=== PATIENT | female | born 1960 | race Hispanic/Latino ===

== ENCOUNTER 2020-10-16 08:30 | Day surgery (SDC) | payer OTHER ==
[2020-10-16 08:50] LABS: Absolute Lymphocytes (CBC) 2.4 K/uL (0.7-4.9); Basophils % 0.7 % (0-1.3); Hematocrit 37.2 % (36.0-45.0); Lymphocytes % 36.7 % (15.3-44.8); MPV 7.5 fL (7.6-11.3); RBC Red Blood Cell Count 4.24 M/uL (3.86-4.86)
[2020-10-16 09:09] LABS: Potassium 3.8 mmol/L (3.5-5.1)
--- NOTE | 2020-10-16 09:15 | RAD REPORT ---
EXAM DESCRIPTION: RAD - Chest Pa And Lat (2 Views) - 10/16/2020 8:55 am CLINICAL HISTORY: STAT, SAME DAY SURGERY, BED 4 COMPARISON: None available at the time of the study TECHNIQUE: Frontal and lateral views of the chest were obtained. FINDINGS: The lungs are clear. Heart size is normal and central vasculature is within normal limit s. No pleural effusion or pneumothorax seen. No acute bony finding noted. No aortic abnormality. IMPRESSION: No acute cardiopulmonary process.
[2020-10-16] MEDS ORDERED: Ringers Lactate 1,000 ML IV ONE (10:27)
[2020-10-16] MEDS ORDERED: CEFAZOLIN/SWI 1gm 0 GM/0 ML SYR ONE (11:25)
[2020-10-16] MEDS ORDERED: FENTANYL CITR 100 MCG/2 ML ONE (11:50)
[2020-10-16] MEDS ORDERED: KETOROLAC 30 MG/ML INJ ONE (11:50)
[2020-10-16] MEDS ORDERED: MIDAZOLAM HCL 2 MG/2 ML INJ ONE (11:50)
[2020-10-16] MEDS ORDERED: propofoL 200 MG/20 ML VIAL IV ONE (11:50)
[2020-10-16] MEDS ORDERED: ONDANSETRON 4 MG/2 ML VIAL ONE (11:50)
[2020-10-16] MEDS ORDERED: dexAMETHasone 10 MG/ML VIAL ONE (11:50)
[2020-10-16] MEDS ORDERED: ROCURONIUM 50 MG/5 ML VIAL IV ONE (11:50)
[2020-10-16] MEDS ORDERED: LIDOCAINE 1% MPF 5 ML VIAL ONE (11:50)
[2020-10-16] MEDS: CIPROFLOXACIN 400mg IV 400 MG/200 ML BAG IV ONE ×2 (12:28→13:10)
--- NOTE | 2020-10-16 13:43 | P.BOP ---
Preoperative diagnosis: infected abd wall subQ mass with abscess Postoperative diagnosis: same Primary procedure: Excisional biopsy of infected abd wall subQ mass with abscess drain 5x5 cm Estimated blood loss: <10cc Specimen: mass , cult Findings: as above Anesthesia: General Complications: None Transferred to: Recovery Room Condition: Good
[2020-10-16] MEDS ORDERED: CODEINE 30MG/APAP 300MG TAB ONE (14:42)
[2020-10-16 15:15] VITALS: BP 118/61; TEMP 97.5; O2SAT 98
--- NOTE | 2020-11-04 19:55 | OP ---
Date of Procedure: 10/16/2020 Surgeon: Héctor Higuera MD Preoperative Diagnosis: Infected abdominal wall subcutaneous mass with abscess. Postoperative Diagnosis: Infected abdominal wall subcutaneous mass with abscess. Procedure: Excisional biopsy of infected abdominal wall subcutaneous mass with abscess drainage, 5 x 5 cm. Estimated Blood Loss: Less than 10 cc. Specimen: Mass and culture. Anesthesia: General plus local. Indication: This is the case of a female who comes to us with abdominal wall tender mass with erythe ma, tenderness, consistent with an abscess. Benefits, alternatives, and risks of excision of the mass and drainage of an abscess were fully explained, which include, but not limited to infec tion, bleeding, damage to adjacent structures, anesthesia complication, recurrence, MT, and even deat h. She also understands this may not relieve symptoms. She might need more than one surgical interv ention and she will require wound care. She signed a consent. Procedure In Detail: The area of concern was marked by me and the patient in the holding room. The patient was brought to the operating room, placed in supine position. Anesthesia was done without co mplication. Abdominal area was prepped and draped in usual sterile fashion. Local anesthesia was ap plied followed by sharp incision of the skin. Incision was carried down to subcutaneous tissue. At that moment, we noticed the mass. It was carefully removed and deep to that mass, there was an absce ss with purulent discharge. It was also drained with loculations removed and explored. Mass was exc ised. Hemostasis was obtained. Culture was done and then after that we proceeded to pack the area w ith wet-to-dry dressing. The patient tolerated the procedure well. The patient was sent to Recovery in stable condition. Discharge Summary: Diagnosis: Infected abdominal wall subcutaneous mass with abscess. Date Of Procedure: 10/16/2020 Procedure: Excisional biopsy of infected abdominal wall subcutaneous mass with abscess drainage. Disposition: Home. Activity: As tolerated. No heavy lifting. Plan: Follow up in my office in 1 week. Call for appointment at [phone]. Wet-to-dry dressing juan daniel giraldo Medications: See orders. MADAY/MODL Voice ID: [id number] Report ID: [id number]
== END 2020-10-16 15:10 | disposition home or self-care (01) ==
LOC: OR 08:30
PROVIDERS: ATTEND Surgery
PROC: 0JB80ZZ Excision of Abdomen Subcutaneous Tissue and Fascia, Open Approach (ICD-10-PCS; principal; 2020-10-16 11:00)
DX: L72.0 Epidermal cyst (principal); I10 Essential (primary) hypertension; E78.00 Pure hypercholesterolemia, unspecified; Z20.822 Contact with and (suspected) exposure to COVID-19
CPT/HCPCS: 93005; 87070; 85025; 80048; 36415; 87205; 88304; 87075; 71046; 22903; U0003; J2704; J2250; J3010; J1100; J7120; J2405; J0744; 88305; J0690

== ENCOUNTER 2020-12-20 10:55 | Day surgery (SDC) | payer OTHER ==
[2020-12-19 13:31] LABS: Absolute Lymphocytes (CBC) 2.3 K/uL (0.7-4.9); Basophils % 0.6 % (0-1.3); Hematocrit 37.2 % (36.0-45.0); Lymphocytes % 30.6 % (15.3-44.8); MPV 7.8 fL (7.6-11.3); RBC Red Blood Cell Count 4.17 M/uL (3.86-4.86)
[2020-12-19 18:39] LABS: Potassium 4.2 mmol/L (3.5-5.1)
[2020-12-20] MEDS ORDERED: Ringers Lactate 1,000 ML IV ONE (11:29)
[2020-12-20] MEDS ORDERED: CIPROFLOXACIN 400mg IV 400 MG/200 ML BAG IV ONE (12:18)
[2020-12-20] MEDS ORDERED: FENTANYL CITR 100 MCG/2 ML ONE (12:27)
[2020-12-20] MEDS ORDERED: propofoL 200 MG/20 ML VIAL IV ONE (12:27)
[2020-12-20] MEDS ORDERED: LIDOCAINE 2% MPF 5 ML VIAL ONE (12:28)
[2020-12-20] MEDS ORDERED: dexAMETHasone 10 MG/ML VIAL ONE (12:28)
[2020-12-20] MEDS ORDERED: MIDAZOLAM HCL 2 MG/2 ML INJ ONE (12:28)
--- NOTE | 2020-12-20 12:34 | P.BOP ---
Preoperative diagnosis: infected chest wall subQ mass with abscess Postoperative diagnosis: same Primary procedure: Excisional biopsy infected chest wall subQ mass with abscess 2.5 x 2.5cm Estimated blood loss: <10cc Specimen: mass Findings: same plus abscess Anesthesia: General Complications: None Drain(s): Other
--- NOTE | 2020-12-20 12:53 | OP ---
Date of Procedure: 12/20/2020 Surgeon: Héctor Higuera MD Preoperative Diagnosis: Infected chest wall subcutaneous mass with abscess. Postoperative Diagnosis: Infected chest wall subcutaneous mass with abscess. Procedure: Excisional biopsy of infected chest wall subcutaneous mass with abscess and drainage abou t 2.5 x 2.5 cm. Anesthesia: General plus local. Indication: This is the case of a 60-year-old patient with a tender subcutaneous mass, deep. The pa tient wanted that excised. We are afraid she has also an abscess in that region and lateral erythema . The benefits, alternatives, and risks of excisional biopsy of infected chest wall subcutaneous mas s fully explained, which include, but not limited to infection, bleeding, damage to adjacent structur es, anesthesia complication, nonhealing wound, MS, and even . She also understands this may not relieve any symptoms. She might need more than one surgical intervention. She understood, signed a consent. She also understands she will require wound care in that region. Procedure In Detail: The patient was brought to the operating room, placed in supine position. Anes thesia was done without complication. The area of concern that was previously marked by me and the p atient was then opened in a wedge fashion. The incision was carried down to deep subcutaneous tissue . We noticed the patient has this subcutaneous mass present and deep abscess. All loculations were explored open. Mass was excised. Abscess was drained and cultured. Hemostasis was obtained. The a umu was packed with a dry dressing. The patient tolerated the procedure well. The patient was sent to recovery in stable condition. MADAY/DELFINA Voice ID: [id number] Report ID: [id number]
[2020-12-20] MEDS ORDERED: KETOROLAC 30 MG/ML INJ ONE (12:55)
--- NOTE | 2020-12-20 12:56 | DS ---
Diagnosis: Infected chest wall subcutaneous mass. Procedure: Excisional biopsy of infected chest wall subcutaneous mass with abscess drainage. Disposition: Home. Activity: As tolerated. No heavy lifting. Wet-to-dry dressing. Normal saline daily. Medications: Include Tylenol No.3 q.4 hours p.r.n. pain, packing with saline. MADAY/DELFINA Voice ID: [id number] Report ID: [id number]
[2020-12-20 15:41] VITALS: BP 105/65; TEMP 97.1; O2SAT 99
== END 2020-12-20 13:55 | disposition home or self-care (01) ==
LOC: OR 10:55
PROVIDERS: ATTEND Surgery
PROC: 0JB60ZZ Excision of Chest Subcutaneous Tissue and Fascia, Open Approach (ICD-10-PCS; principal; 2020-12-20 12:30)
DX: L72.0 Epidermal cyst (principal)
CPT/HCPCS: 93005; 87070; 85025; 80048; 36415; 87205; 88304; 87075; 21601; J2704; J2250; J3010; J1100; J7120; J0744